=== PATIENT | female | born 1955 | race Caucasian/White ===

== ENCOUNTER 2020-07-04 16:15 | Outpatient (CLI) | payer OTHER ==
[2020-07-04 17:00] LABS: #Basophils 0.1 10x3/uL (0.0-0.2); #Eosinphils 0.2 10x3/uL (0.0-0.5); #Monocytes 0.5 10x3/uL (0.0-1.1); #Neutrophils 3.3 10x3/uL (1.5-8.4); %Basophils 0.8 % (0.0-2.0); %Eosinophils 3.8 % (0.0-6.0); %Lymphocytes 36.3 % (18.0-47.0); %Monocytes 7.3 % (0.0-10.0); %Neutrophils 51.5 % (40.0-75.0); Hemoglobin 14.4 g/dL (12.0-16.0); Mean Corpuscular HGB CONC 32.9 G/DL (32.0-36.0); Mean Corpuscular Hemoglobin 29.1 PG (27.0-33.0); Mean Corpuscular Volume 88.5 fl (80.0-100.0); Mean Platelet Volume 10.2 fl (7.4-10.4); Platelet Count 218 10x3/uL (130-400); RBC Distribution Width 12.6 % (11.5-14.5); Red Blood Cell (RBC) Count 4.95 10x6/uL (3.90-5.20); White Blood Cell (WBC) Count 6.3 10x3/uL (4.5-11.0)
[2020-07-04 17:11] LABS: ALT (SGPT) 19 U/L (8-55); AST (SGOT) 22 U/L (5-34); Albumin 4.2 g/dL (3.4-4.8); Alkaline Phosphatase 98 U/L (40-110); Anion Gap 17 mmol/L (10-20); BUN (Urea Nitrogen) 17 mg/dL (9.8-20.1); Bilirubin, Total 0.4 mg/dL (0.2-1.2); Calc. Creatinine Clearance 0 mL/min (70-130); Calcium 9.3 mg/dL (7.8-10.44); Carbon Dioxide 24 mmol/L (23-31); Chloride 108 mmol/L (98-107); Globulin 2.9 g/dL (2.4-3.5); Glucose 94 mg/dL (80-115); Potassium 4.7 mmol/L (3.5-5.1); Protein, Total 7.1 g/dL (6.0-8.3); Sodium 144 mmol/L (136-145)
[2020-07-05 06:33] LABS: SARS-CoV-2 MS2 Positive; SARS-CoV-2 N Gene Negative; SARS-CoV-2 S Gene Negative; SARS-CoV-2 by NAA Not Detected (NotDetected); SARS-CoV-2 orf1ab Negative
== END 2020-07-04 16:16 | disposition home or self-care (01) ==
LOC: LABBT 16:15
DX: Z01.818 Encounter for other preprocedural examination (principal); G20 Parkinson's disease; K80.20 Calculus of gallbladder without cholecystitis without obstruction; Z20.822 Contact with and (suspected) exposure to COVID-19
CPT/HCPCS: 80053; 85025; 87635; U0003

== ENCOUNTER 2020-07-06 06:09 | Day surgery (SDC) | payer OTHER ==
[2020-07-05 10:59] VITALS: BMI 38.9
[2020-07-06] MEDS ORDERED: Levofloxacin 500 mg/D5W 100 ml Premix Bag ONE (06:20)
[2020-07-06] MEDS ORDERED: Scopolamine 1.5 mg/72 hour Patch ONE (06:20)
[2020-07-06] MEDS ORDERED: Ketorolac Tromethamine 30 MG/ML VIAL ONE (06:20)
[2020-07-06] MEDS ORDERED: Acetaminophen 500 MG TAB ONE (06:20)
[2020-07-06] MEDS ORDERED: Bupivacaine PF 0.5% 30 ML VIAL ONE (06:34)
[2020-07-06] MEDS ORDERED: EPINEPHrine 1 MG/ML AMP ONE (06:34)
[2020-07-06] MEDS ORDERED: Midazolam HCl 2 mg/2 ml Vial ONE (07:03)
[2020-07-06] MEDS ORDERED: Fentanyl 250 MCG/5 ML VIAL ONE (07:03)
[2020-07-06] MEDS ORDERED: SUGAMMADEX SODIUM 200 MG/2 ML VIAL ONE (08:32)
[2020-07-06] MEDS ORDERED: Glycopyrrolate 0.2 MG/ML 5 ML SYRINGE ONE (08:40)
[2020-07-06] MEDS ORDERED: Ondansetron PF 4 MG/2 ML Vial ONE (08:40)
[2020-07-06] MEDS ORDERED: Labetalol HCl 100 MG/20 ML VIAL ONE (08:40)
[2020-07-06] MEDS ORDERED: Dexamethasone 20 MG/5 ML VIAL ONE (08:40)
[2020-07-06] MEDS ORDERED: PROPOFOL 200 MG/20 ML VIAL ONE (08:40)
[2020-07-06] MEDS ORDERED: Lidocaine 1% PF 5 ML VIAL ONE (08:40)
[2020-07-06] MEDS ORDERED: Rocuronium Bromide 10 MG/ML (10ML VIAL) ONE (08:40)
--- NOTE | 2020-07-06 09:24 | OP ---
DATE OF PROCEDURE: 07/06/2020 PREOPERATIVE DIAGNOSES: Chronic and acute cholecystitis, cholelithiasis. POSTOPERATIVE DIAGNOSES: Chronic and acute cholecystitis, cholelithiasis with gallbladder outlet obstruction and hydrops of the gallbladder. ANESTHESIA: General, local 0.5% Marcaine 30 mL mixed with 1% Xylocaine with epinephrine 20 mL. PROCEDURES PERFORMED: Laparoscopic video cholecystectomy. DESCRIPTION OF PROCEDURE: The patient was taken to the operating room, where under general anesthesia, abdomen was prepared with ChloraPrep and draped in routine fashion. Infraumbilical incision made, pneumoperitoneum to 15 mmHg obtained with a Veress needle, replaced with a 5 port. All port sites were anesthetized with local anesthetic, infiltrated into skin and subcutaneous tissue. Right subxiphoid incision was made and 11 port placed. Right subcostal incision made at midclavicular entrance line and 5 ports placed. Liver appeared to be normal, slightly fatty. Fundus of the gallbladder grasped and retracted cephalad after omental adhesions taken down from the gallbladder and liver edge. The fundus of the gallbladder reflected cephalad. Infundibulum was grasped and reflected laterally. Cystic artery and duct dissected free. Critical view obtained. Cystic artery and duct doubly clipped proximally, divided. Gallbladder dissected free from the liver bed, obtaining good hemostasis prior to division of final peritoneal attachments. Gallbladder and contents removed, submitted to pathology, good hemostasis ensured with cautery. Irrigant and pneumoperitoneum evacuated. All instruments were removed and all skin incisions were approximated with interrupted subdermal 4-0 Monocryl and Peculiar glue applied. Job ID: [id number]
[2020-07-06] MEDS ORDERED: HYDROcodone/Acetaminophen 5/325 mg Tablet ONE (09:57)
== END 2020-07-06 10:43 | disposition home or self-care (01) ==
LOC: SDC 06:09
PROVIDERS: ATTEND Specialist
PROC: 0FT44ZZ Resection of Gallbladder, Percutaneous Endoscopic Approach (ICD-10-PCS; principal; 2020-07-06)
DX: K80.12 Calculus of gallbladder with acute and chronic cholecystitis without obstruction (principal); G20 Parkinson's disease; Z79.899 Other long term (current) drug therapy
CPT/HCPCS: 88304; 93005; 93010; J0171; J1885; J1956; J2250; J3010; S0020

== ENCOUNTER 2022-03-29 22:20 | Emergency (ER) | payer OTHER ==
[2022-03-29 23:54] LABS: #Basophils 0.1 thou/uL (0.0-0.2); #Eosinphils 0.2 thou/uL (0.0-0.7); #Lymphocytes 1.3 thou/uL (1.20-3.40); %Basophils 0.4 % (0.0-1.0); %Eosinophils 1.2 % (0.0-10.0); %Monocytes 8.3 % (0.0-10.0); Hemoglobin 16.2 g/dL (12.0-16.0); Mean Corpuscular HGB CONC 33.3 g/dL (32.0-36.0); Mean Corpuscular Hemoglobin 30.5 pg (27.0-31.0); Mean Corpuscular Volume 91.4 fL (78.0-98.0); Mean Platelet Volume 7.8 fL (7.4-10.4); Platelet Count 193 thou/uL (130-400); RBC Distribution Width 11.7 % (11.5-14.5); White Blood Cell (WBC) Count 12.5 thou/uL (4.8-10.8)
[2022-03-30] MEDS ORDERED: Ondansetron ODT 4 MG TAB ONE (00:07)
[2022-03-30 00:16] LABS: ALT (SGPT) 22 U/L (8-55); AST (SGOT) 19 U/L (5-34); Albumin 4.3 g/dL (3.4-4.8); Alkaline Phosphatase 97 U/L (40-110); Anion Gap 13 mmol/L (10-20); BUN (Urea Nitrogen) 10 mg/dL (9.8-20.1); Bilirubin, Total 0.7 mg/dL (0.2-1.2); Calc. Creatinine Clearance 0 mL/min (70-130); Calcium 9.6 mg/dL (7.8-10.44); Carbon Dioxide 27 mmol/L (23-31); Chloride 104 mmol/L (98-107); Estimated GFR 61; Globulin 3.3 g/dL (2.4-3.5); Glucose 112 mg/dL (80-115); Lipase 13 U/L (8-78); Potassium 4.8 mmol/L (3.5-5.1); Protein, Total 7.6 g/dL (5.8-8.1); Sodium 139 mmol/L (136-145)
[2022-03-30 01:56] LABS: Bacteria/HPF None Seen HPF (None Seen); Bilirubin Negative (Negative); Blood, Urine 1+ (Negative); Clarity Clear (Clear); Glucose, Urine (Dipstick) Normal (Negative); Ketone, Urine Negative (Negative); Leukocyte Negative Leu/uL (Negative); Nitrite Negative (Negative); Protein, Urine (Dipstick) Negative (Neg-Trace); Specific Gravity, Urine 1.037 (1.002-1.036); Urobilinogen Normal mg/dL (Less than 2); WBC/HPF 0-3 HPF (0-3)
[2022-03-30] MEDS ORDERED: Iopamidol 370 76% 100 ML VIAL ONE (10:07)
== END 2022-03-30 02:09 | disposition home or self-care (01) ==
LOC: ERS 22:20
DX: R10.9 Unspecified abdominal pain (principal); R11.2 Nausea with vomiting, unspecified; I10 Essential (primary) hypertension; E78.5 Hyperlipidemia, unspecified; E78.00 Pure hypercholesterolemia, unspecified; I25.2 Old myocardial infarction
CPT/HCPCS: 36415; 74177; 80053; 81003; 81015; 83690; 85025; 96360; 96361; Q0162; Q9967

== ENCOUNTER 2023-12-28 05:50 | Emergency (ER) | payer OTHER, SELFPAY ==
[2023-12-28] MEDS ORDERED: Diazepam 10 MG/2 ML SYRINGE ONE (06:14)
[2023-12-28 06:38] LABS: #Basophils 0.03 10x3/uL (0.0-0.2); %Basophils 0.5 % (0.0-1.0); %Eosinophils 3.1 % (0.0-10.0); %Lymphocytes 28.3 % (21.0-51.0); %Monocytes 7.3 % (0.0-10.0); %Neutrophils 60.4 % (42.0-75.0); Hematocrit 42.9 % (36.0-47.0); Hemoglobin 14.8 g/dL (12.0-16.0); Mean Corpuscular HGB CONC 34.5 g/dL (32.0-36.0); Mean Platelet Volume 10.1 fL (7.4-10.4); Platelet Count 214 10x3/uL (130-400); RBC Distribution Width 11.9 % (11.5-14.5); Red Blood Cell (RBC) Count 4.93 mill/uL (4.20-5.40)
[2023-12-28 07:11] LABS: ALT (SGPT) Less than 5 U/L (8-55); AST (SGOT) 8 U/L (5-34); Albumin 3.6 g/dL (3.4-4.8); Alkaline Phosphatase 94 U/L (40-110); Anion Gap 14 mmol/L (10-20); BUN (Urea Nitrogen) 14 mg/dL (9.8-20.1); Bilirubin, Total 0.6 mg/dL (0.2-1.2); Calc. Creatinine Clearance 0 mL/min (70-130); Calcium 9.2 mg/dL (7.8-10.44); Carbon Dioxide 23 mmol/L (23-31); Chloride 108 mmol/L (98-107); Estimated GFR 83; Globulin 3.2 g/dL (2.4-3.5); Glucose 101 mg/dL (80-115); Magnesium 1.9 mg/dL (1.6-2.6); Protein, Total 6.8 g/dL (5.8-8.1); Sodium 141 mmol/L (136-145)
== END 2023-12-28 08:48 | disposition home or self-care (01) ==
LOC: ERS 05:50
DX: G20.A1 Parkinson's disease without dyskinesia, without mention of fluctuations (principal); I10 Essential (primary) hypertension; Z55.6 Problems related to health literacy
CPT/HCPCS: 80053; 83735; 85025; 96374; J3360

== ENCOUNTER 2025-03-09 09:13 | Emergency (ER) | payer MEDICARE ==
[2025-03-09] MEDS ORDERED: Ondansetron PF 4 MG/2 ML Vial ONE (10:07)
[2025-03-09 10:17] LABS: #Basophils 0.04 10x3/uL (0.0-0.2); #Eosinophils 0.05 10x3/uL (0.0-0.7); #Monocytes 0.35 10x3/uL (0.11-0.59); #Neutrophils 4.22 10x3/uL (1.40-6.50); %Basophils 0.7 % (0.0-1.0); %Eosinophils 0.9 % (0.0-10.0); %Lymphocytes 15.2 % (21.0-51.0); %Monocytes 6.4 % (0.0-10.0); %Neutrophils 76.6 % (42.0-75.0); Hematocrit 42.9 % (36.0-47.0); Hemoglobin 13.8 g/dL (12.0-16.0); Mean Corpuscular Hemoglobin 27.8 pg (27.0-31.0); Mean Corpuscular Volume 86.5 fL (78.0-98.0); Platelet Count 214 10x3/uL (130-400); Red Blood Cell (RBC) Count 4.96 mill/uL (4.20-5.40); White Blood Cell (WBC) Count 5.51 10x3/uL (4.8-10.8)
[2025-03-09 10:43] LABS: ALT (SGPT) Less than 7 U/L (Less than 34); AST (SGOT) 8 U/L (11-34); Albumin 3.8 g/dL (3.1-4.5); Alkaline Phosphatase 98 U/L (40-110); Anion Gap 11 mmol/L (10-20); BUN (Urea Nitrogen) 16 mg/dL (9.8-20.1); Bilirubin, Total 0.7 mg/dL (0.3-1.2); Calc. Creatinine Clearance 0 mL/min (70-130); Calcium 9.4 mg/dL (7.8-10.44); Carbon Dioxide 28 mmol/L (23-31); Chloride 103 mmol/L (98-107); Globulin 3.0 g/dL (2.4-3.5); Glucose 105 mg/dL (80-115); Potassium 4.6 mmol/L (3.5-5.1); Sodium 137 mmol/L (136-145)
[2025-03-09 11:31] LABS: Bacteria/HPF None Seen HPF (None Seen); CAUTI Indications for Culture Dysuria,urgency,freq; Glucose, Urine (Dipstick) Normal (Negative); Leukocyte Negative Leu/uL (Negative); Protein, Urine (Dipstick) 20 mg/dL (Neg-Trace); RBC/HPF Greater than 50 HPF (0-3); Specific Gravity, Urine 1.032 (1.002-1.036); WBC/HPF 0-3 HPF (0-3)
[2025-03-09 11:33] LABS: Urine Culture Reflex No No
== END 2025-03-09 12:30 | disposition home or self-care (01) ==
LOC: ERS 09:13
DX: R25.1 Tremor, unspecified (principal); R11.0 Nausea; I10 Essential (primary) hypertension; I25.2 Old myocardial infarction; Z95.1 Presence of aortocoronary bypass graft
CPT/HCPCS: 80053; 81001; 84484; 85025; 93005; J2405; 51701; 96374